=== PATIENT | male | born 1965 | race Caucasian/White ===

== ENCOUNTER → 2018-11-28 | Outpatient (CLI) | payer BC ==
--- NOTE | 2018-11-28 22:25 | CT ---
EXAMINATION TYPE: CT abdomen pelvis w con DATE OF EXAM: 11/28/2018 COMPARISON: NONE HISTORY: 53-year-old male abdominal pain, groin pain X 1 year TECHNIQUE: Contiguous axial scanning of the abdomen and pelvis following administration of 100 ml Iso javad 300 IV contrast. Delayed images through the kidneys and coronal/sagittal reconstructions perform ed. CT DLP: 525.8 mGycm Automated exposure control for dose reduction was used. FINDINGS: The heart is normal size without pericardial effusion. Lung bases clear without pleural effusion. Tiny hiatal hernia. No focal liver lesion or biliary ductal dilatation. Portal venous system is patent. Tiny diverticulum of the second portion of the duodenum projecting into the pancreatic head region. A couple small gallstones measuring up to 8 mm. No abnormal gallbladder distention. Adrenal glands, kidneys, spleen, and pancreas appear within normal limits. No dilated small bowel, free fluid, or free air. A few scattered prominent mesenteric lymph nodes measure up to 5 mm. No retroperitoneal lymphadenopat hy. Oral contrast progressed to the hepatic flexure. There is moderate stool burden. No pericolonic infla mmatory change. Bladder is urine distended. Prostate gland mildly enlarged at 4.7 cm wide. Right-sided pelvic phlebol iths. No abnormal fluid collection in the pelvis or pelvic lymphadenopathy. No discrete inguinal ana maría ia is identified. Bones: No osseous destructive process. IMPRESSION: 1. TINY HIATAL HERNIA. CHOLELITHIASIS. 2. MODERATE STOOL BURDEN. 3. NO ACUTE INFLAMMATORY PROCESS IDENTIFIED IN THE ABDOMEN OR PELVIS TO EXPLAIN PATIENT'S SYMPTOMS.
== END | disposition home or self-care (01) ==
LOC: RADCTMAIN 15:45
PROVIDERS: ATTEND Family Medicine
DX: K44.9 Diaphragmatic hernia without obstruction or gangrene (principal); K80.20 Calculus of gallbladder without cholecystitis without obstruction; K56.41 Fecal impaction
CPT/HCPCS: 74177

== ENCOUNTER → 2019-11-29 | Outpatient (CLI) | payer BC ==
--- NOTE | 2019-11-29 12:14 | NM ---
EXAMINATION TYPE: NM stress cardiolite complete DATE OF EXAM: 11/29/2019 COMPARISON: NONE HISTORY: Abnormal EKG, shortness of breath TECHNIQUE: After the intravenous administration of 10.3 mCi Tc 99m Sestamibi - Rest images obtained 58 minutes post injection. The patient exercised using a BARBARA protocol and 1 minute prior to peak exercise was injected with 26.6 mCi Tc 99m Sestamibi - Stress images obtained 20 minutes post injecti on. FINDINGS: Targeted heart rate was achieved during performance of the study. Review of stress and rest SPECT mary ges demonstrates no distinct perfusion abnormality. Gated analysis shows normal wall motion with an estimated left ventricular ejection fraction of 62 %. IMPRESSION: No scintigraphic evidence for reversible ischemia
--- NOTE | 2019-11-29 14:38 | EST ---
EXERCISE STRESS AGE: 54 SEX: M HT: 70" WT: 167 lbs. PROTOCOL: Cardiolite Zacarias STAGE: 4 DURATION OF EXERCISE: 9:30 HEART RATE REST: 64 BLOOD PRESSURE REST: 123/94 MAXIMUM HEART RATE ACHIEVED: 148 MAXIMUM BLOOD PRESSURE: 171/86 85% MPHR: 140 100% MPHR: 165 METS: 11.1 INDICATIONS: Cardiac Arrhythmia. CLINICAL INFORMATION: Baseline EKG revealed normal sinus rhythm without significant ST-T changes. Patient walked for 9 minutes 30 seconds, achieved a maximal heart rate of 148 beats per minute which is well above 85% of predicted maximal. He developed fatigue, shortness of breath but did not have angina or arrhythmia. EKG did not reveal any ST-segment changes to indicate ischemia. FINAL IMPRESSION: 1. By EKG criteria, this is a negative stress test with good exercise capacity. 2. The nuclear scan results which are more pertinent will be reported by the radiologist. Patient did not have any angina. There was no arrhythmia and there were no ST-segment changes to indicate ischemia. MMODL / IJN: [id number] /
--- NOTE | 2019-12-04 14:13 | HM ---
HOLTER MONITOR REPORT 24 HOLTER MONITOR: The 24 Holter monitor shows sinus rhythm and sinus tachycardia. Heart rates ranging from 47-148 beats per minute, average 74 beats per minute. Infrequent PVCs. and one brief run of nonsustained atrial tachycardia (nonsustained PAT, slow.) No sustained arrhythmias. MMALICE / SANTY: [id number] /
== END | disposition home or self-care (01) ==
LOC: RADNMMAIN 08:48
PROVIDERS: ATTEND Family Medicine
DX: I49.9 Cardiac arrhythmia, unspecified (principal); R06.02 Shortness of breath; R94.31 Abnormal electrocardiogram [ECG] [EKG]
CPT/HCPCS: 93017; 93225; 93226; 78452; A9500

== ENCOUNTER → 2021-02-25 | Outpatient (CLI) | payer BC ==
[2021-02-25 10:18] LABS: African American GFR (CKD) >90 (>60 ml/min/1.73 sqM); Anion Gap 6 mmol/L; Blood Urea Nitrogen 12 mg/dL (9-20); Calcium 9.7 mg/dL (8.4-10.2); Carbon Dioxide 28 mmol/L (22-30); Chloride 105 mmol/L (98-107); Glucose 99 mg/dL (74-99); Non-African American GFR(CKD) >90 (>60 ml/min/1.73 sqM); Potassium 4.3 mmol/L (3.5-5.1); Sodium 139 mmol/L (137-145)
--- NOTE | 2021-02-25 11:06 | CT ---
EXAMINATION TYPE: CT angio chest DATE OF EXAM: 02/25/2021 COMPARISON: None HISTORY: Aortic aneurysm, unspecified CT DLP: 667 mGycm CONTRAST: CTA thoracic aorta with 3-D reconstruction is performed and without and with IV Contrast, patient inj ected with 100 ml mL of Isovue 370. Contrast CTA of the thoracic aorta was performed from the lung apex through the upper abdomen. 3D re construction imaging obtained at a separate workstation. CT Chest: THORACIC AORTA: Ascending thoracic aortic aneurysm measuring 5.2 cm AP dimension. Aneurysm extends in to the proximal aortic arch measuring 4 cm. The distal aortic arch and descending thoracic aorta are of normal caliber.. There is no evidence for dissection or periaortic collection. LUNGS: The lungs are clear and free of infiltrate or atelectasis. No pulmonary nodule or mass is det ected. No pleural effusion or CT evidence of interstitial lung disease. MEDIASTINUM: No evidence for mediastinal hematoma. The heart is not enlarged. No evidence for med iastinal mass or adenopathy. HILAR STRUCTURES: No evidence for mass. No hilar adenopathy is appreciated. OTHER: Gallstone noted. IMPRESSION- Thoracic aortic aneurysm as noted above without complicating factor.
[2021-02-25 18:42] LABS: Chol/HDL Ratio 2.43 Ratio; LDL Cholesterol,Calculated 107.6 mg/dL (0.0-131.0); VLDL Calculation 13.14 mg/dL (5.00-40.00)
== END | disposition home or self-care (01) ==
LOC: RADCTMAIN 09:15
PROVIDERS: ATTEND Internal Medicine Clinical Cardiac Electrophysiology
DX: I71.2 Thoracic aortic aneurysm, without rupture (principal)
CPT/HCPCS: 80061; 80048; 71275; 36415; Q9967

== ENCOUNTER 2021-04-02 18:58 | Emergency (ER) | payer BC ==
[2021-04-02 19:03] VITALS: RESP 20; TEMP 98.7
--- NOTE | 2021-04-02 19:46 | CT ---
EXAMINATION: CT brain wo con DATE AND TIME: 04/02/2021 7:28 PM CLINICAL INDICATION: Pain; Injury TECHNIQUE: Standard departmental protocol Dose: 1143.4 mGy-cm COMPARISON: None. FINDINGS: The calvarium is intact. There is no intracranial hemorrhage. There is no intracranial mass or mass effect. No definite new intra-axial or extra-axial attenuation defect. The paranasal sinuses, middle ear cavities, and mastoid sinus air cells are clear. The orbits are unremarkable. IMPRESSION: NO ACUTE PROCESS.
--- NOTE | 2021-04-02 22:53 | ED ---
General Adult HPI - General Chief complaint: Head Injury Stated complaint: Fall/head injury Time Seen by Provider: 04/02/21 22:21 Source: patient, RN notes reviewed Mode of arrival: ambulatory Limitations: no limitations - History of Present Illness Initial comments: Patient is a 56-year-old male presenting to the emergency department after having a single event earlier this morning about 5:30 this morning. Patient states he tested positive for covid a few days ago, has been dealing with minor viral type symptoms. Patient states he was having some chills and lightheadedness, went to use the bathroom and the next thing he knew he fell forward on the bathroom floor. He states he has small abrasion to left forehead. This happened about 5:30 this morning. Patient states she was evaluated today at urgent care couple hours before arrival here and they recommended coming in for further evaluation. He does not take blood thinners. He denies having a headache, dizziness at this time. He denies any chest pain or short of breath, no abdominal pain, no vomiting. Patient has no further complaints. Upon arrival to the ER his vitals are stable. - Related Data Previous Rx's Medication Instructions Recorded Meclizine [Antivert] 25 mg PO TID #20 tab 01/24/14 Metoclopramide HCl [Reglan] 10 mg PO Q12HR #10 tablet 01/24/14 Allergies Allergy/AdvReac Type Severity Reaction Status Date / Time rimegepant [From [facility] ODT] Allergy Rash/Hives Verified 04/02/21 19:03 Review of Systems ROS Statement: Those systems with pertinent positive or pertinent negative responses have been documented in the HPI. ROS Other: All systems not noted in ROS Statement are negative. Past Medical History Past Medical History: No Reported History History of Any Multi-Drug Resistant Organisms: None Reported Past Surgical History: Appendectomy Past Psychological History: No Psychological Hx Reported Smoking Status: Never smoker Past Alcohol Use History: Occasional Past Drug Use History: None Reported General Exam - General Exam Comments Initial Comments: GENERAL: Patient is well-developed and well-nourished. Patient is nontoxic and in no acute distress. HEAD: Atraumatic, normocephalic. He has no hematomas, small abrasion to the left forehead. EYES: Pupils equal round and reactive to light, extraocular movements intact, sclera anicteric, conjunctiva are normal. Eyelids were unremarkable. ENT: Nares patent, oropharynx clear without exudates. Moist mucous membranes. NECK: Normal range of motion, supple without lymphadenopathy or JVD. LUNGS: Unlabored respirations. Breath sounds clear to auscultation bilaterally and equal. No wheezes rales or rhonchi. HEART: Regular rate and rhythm without murmurs, rubs or gallops. ABDOMEN: Soft, nontender, normoactive bowel sounds. No guarding, no rebound. No masses appreciated. MUSCULOSKELETAL: Normal extremities with adequate strength and normal range of motion, no pitting or edema. No clubbing or cyanosis. NEUROLOGICAL: Patient is alert and oriented x 3. Motor and sensory are also intact. Cranial nerves II through XII grossly intact. Symmetrical smile. Normal speech, normal gait. PSYCH: Normal mood, normal affect. SKIN: Warm, Dry, normal turgor, no rashes or lesions noted. Limitations: no limitations Course Vital Signs 04/02/21 04/02/21 18:59 23:15 Temperature 98.7 F 98.7 F Pulse Rate 59 L 62 Respiratory 20 20 Rate Blood Pressure 138/90 130/72 O2 Sat by Pulse 98 97 Oximetry Medical Decision Making - Medical Decision Making Patient is a 56-year-old male presenting after having a syncopal event earlier this morning. Patient was evaluated in urgent care hours before arrival in the recommend coming in for further evaluation. Patient's exam is unremarkable, he has a small abrasion to the left forehead otherwise no other acute findings. His vitals are stable, rapid Covid is positive. CT of the brain showed no acute process. I did recommend labs however patient states she just had these done at his doctor's office and they were all normal. He did not want any additional labs. I also recommended monoclonal antibodies, patient refused. Patient is stable for discharge. He can follow up with his primary care. Return parameters were discussed with him and he verbalized understanding. - Lab Data Lab Results 04/02/21 Range/Units 19:07 Coronavirus (PCR) Detected A (Not Detectd) Disposition Clinical Impression: COVID-19, Syncope Disposition: HOME SELF-CARE Condition: Stable Instructions (If sedation given, give patient instructions): Coronavirus Disease 2019 (COVID-19) Additional Instructions: Please return to the Emergency Department if symptoms worsen or any other concerns. Recommended increasing your fluids and increase diet as tolerated. Please follow-up with your primary care. Is patient prescribed a controlled substance at d/c from ED?: No Referrals: Maira Walton III, MD [Primary Care Provider] - 1-2 days Time of Disposition: 22:53
[2021-04-02 23:30] VITALS: BP 130/72; PULSE 62
== END 2021-04-02 23:15 | disposition home or self-care (01) ==
LOC: EC 18:58
DX: S00.81XA Abrasion of other part of head, initial encounter (principal); U07.1 COVID-19; R55 Syncope and collapse; Z79.899 Other long term (current) drug therapy; W18.39XA Other fall on same level, initial encounter
CPT/HCPCS: 70450; 87635; 99284

== ENCOUNTER 2021-04-07 10:27 | Emergency (ER) | payer BC ==
[2021-04-07 10:36] VITALS: RESP 20; TEMP 98.9
--- NOTE | 2021-04-07 11:41 | ED ---
General Adult HPI - General Chief complaint: Upper Respiratory Infection Stated complaint: Covid+/Antibodies Time Seen by Provider: 04/07/21 10:40 Source: patient, RN notes reviewed Mode of arrival: ambulatory Limitations: no limitations - History of Present Illness Initial comments: 56-year-old male without a significant past medical history presents to the emergency room for a chief complaint of antibody infusion. Patient states he has a positive for COVID-19 here in the emergency room on April 02. Patient states his symptoms started March 29. States he has a headache and a dry cough. He is slightly short of breath. Patient states he was not vaccinated. He was offered antibody infusion when he was here on the second but refused gurjit use he felt well at that time. However he is started to feel worse and would like antibody infusion. Patient states he has a pulse oximeter at home that shows an oxygen of above 90% at all times. He states he has been watching this.Patient has no other complaints at this time including chest pain, abdominal pain, nausea or vomiting, headache, or visual changes. - Related Data Previous Rx's Medication Instructions Recorded Meclizine [Antivert] 25 mg PO TID #20 tab 01/24/14 Metoclopramide HCl [Reglan] 10 mg PO Q12HR #10 tablet 01/24/14 Dexamethasone [Decadron] 6 mg PO DAILY #7 tablet 04/07/21 Allergies Allergy/AdvReac Type Severity Reaction Status Date / Time rimegepant [From [facility] ODT] Allergy Rash/Hives Verified 04/07/21 10:35 Review of Systems ROS Statement: Those systems with pertinent positive or pertinent negative responses have been documented in the HPI. ROS Other: All systems not noted in ROS Statement are negative. Past Medical History Past Medical History: No Reported History History of Any Multi-Drug Resistant Organisms: None Reported Past Surgical History: Appendectomy Past Psychological History: No Psychological Hx Reported Smoking Status: Never smoker Past Alcohol Use History: Occasional Past Drug Use History: None Reported General Exam Limitations: no limitations General appearance: alert, in no apparent distress Head exam: Present: atraumatic Eye exam: Present: normal appearance, PERRL, EOMI. Absent: scleral icterus, conjunctival injection ENT exam: Present: normal exam, mucous membranes moist Neck exam: Present: normal inspection, full ROM. Absent: tenderness Respiratory exam: Present: normal lung sounds bilaterally. Absent: respiratory distress, wheezes Cardiovascular Exam: Present: regular rate, normal rhythm, normal heart sounds GI/Abdominal exam: Present: soft, normal bowel sounds. Absent: distended, tenderness Neurological exam: Present: alert Course Vital Signs 04/07/21 04/07/21 10:32 12:08 Temperature 98.9 F Pulse Rate 100 84 Respiratory 20 20 Rate Blood Pressure 129/86 120/79 O2 Sat by Pulse 91 L 91 L Oximetry Medical Decision Making - Medical Decision Making Vitals are stable. Patient is 91-93% on room air when I am in the room. He does get more short of breath when walking however Patient adamantly does not want to stay in the hospital. States he has been checking his pulse oximeter at home and it is always above 90. He states he will come back to the hospital if it is consistently any less than 90 whatsoever. Antibody infusion was ordered and initiated. Patient was monitored in the emergency room for an hour after infusion completed. He was started on Decadron. He will be discharged home and was given very strict return parameters. Disposition Clinical Impression: COVID-19, Pneumonia due to COVID-19 virus Disposition: HOME SELF-CARE Condition: Good Instructions (If sedation given, give patient instructions): Coronavirus Disease 2019 (COVID-19) Additional Instructions: Take medication as directed. Follow-up with your doctor. If you're having worsening shortness of breath or if your pulse ox is less than 90 you need to re turn to the emergency room. Prescriptions: Dexamethasone [Decadron] 6 mg PO DAILY #7 tablet Is patient prescribed a controlled substance at d/c from ED?: No Referrals: Maira Walton III, MD [Primary Care Provider] - 1-2 days Time of Disposition: 12:52
[2021-04-07] MEDS ORDERED: SODIUM CHLORIDE 0.9% 50 ML IVPB ONE (11:45)
[2021-04-07] MEDS ORDERED: SOTROVIMAB (EUA) 500 MG in SODIUM CHLORIDE 0.9% 100 ML IVPB ONE (12:00)
--- NOTE | 2021-04-07 12:09 | XR ---
EXAMINATION TYPE: XR chest 1V portable DATE OF EXAM: 04/07/2021 COMPARISON: Chest x-ray January 24, 2014. CTA chest February 25, 2021 HISTORY: Cough. TECHNIQUE: Single AP portable frontal upright view of the chest is obtained. FINDINGS: There aren't new bilateral predominantly peripheral opacities with more focal consolidatio n peripheral right midlung. The cardiac silhouette size is more prominent measuring upper limits of normal. Underlying scoliotic curvature. IMPRESSION: New bilateral multifocal opacities consistent with covid-19 infection.
[2021-04-07 12:13] VITALS: BP 120/79; PULSE 84
[2021-04-07] MEDS ORDERED: DEXAMETHASONE SOD PHOSPHATE 10 MG/ML 1 ML VIAL IVP STA (13:12)
== END 2021-04-07 13:37 | disposition home or self-care (01) ==
LOC: EC 10:27
DX: U07.1 COVID-19 (principal); J12.82 Pneumonia due to coronavirus disease 2019; Z90.49 Acquired absence of other specified parts of digestive tract
CPT/HCPCS: 99284; 96374; 71045; J1100; Q0247